=== PATIENT | male | born 1960 | race African-American/Black ===

== ENCOUNTER → 2018-11-23 | Day surgery (SDC) | payer OTHER ==
[2018-11-19 13:23] LABS: ANION GAP 12.6 mmol/L (8-16); BLOOD UREA NITROGEN 7 mg/dL (7-26); BUN/CREATININE RATIO 7 (6-25); CALCIUM 10.4 mg/dL (8.4-10.2); CARBON DIOXIDE 31 mmol/L (22-29); CHLORIDE 100 mmol/L (98-107); CREATININE, SERUM 0.96 mg/dL (0.72-1.25); EST GLOMERULAR FILTRATION RATE > 60 ML/MIN (60-); GLUCOSE 93 mg/dL (74-118); POTASSIUM 4.6 mmol/L (3.5-5.1); SODIUM 139 mmol/L (136-145)
[~2018-11-23] MED LIST: AMLODIPINE BESYL5 MG PO; CLINDAMYCIN 300MG 50 ML IV ONE; FENTANYL CITRATE/PF 100MCG/2 ML INJ ONE; GENTAMICIN 120MG/NS 100ML 100 ML ONE; LIDOCAINE HCL 2% LOCAL INJ 5 ML SDV VIAL INJ ONE; LOSARTAN-HCTZ1 EAC1 PO; MIDAZOLAM HCL 2 MG/2 ML VIAL ONE; PROPOFOL IV EMULSION 10 MG/ML 20 ML VIAL ONE
--- OUTSIDE RECORDS SUMMARY | 2018-11-23 06:22 | XMS REPORT ---
Author Author Admin, [place] Organization [facility] Practice Address [address] [place] [address] Phone Allergies, Adverse Reactions, Alerts Allergy Name Reaction Description Start Date Severity Status Provider No Known Allergies Jason Del Cid MA Conditions or Problems Problem Name Problem Code Onset Date Status Entry Date Provider Comment Standard Description Annotate PSA, elevated 790.93 Active Feli JEROME Elevated prostate specific antigen [PSA] Dyslipidemia 272.4 Active Feli Diamond [employer] Other and unspecified hyperlipidemia Preventative health care V70.0 Active Yoselin Braun MD Routine general medical examination at a health care facility Screening for venereal disease V74.5 Active Yoselin Braun MD Screening examination for venereal disease Screening, colon cancer V76.51 Active Yoselin Braun MD Screening for malignant neoplasms of colon Screening, diabetes mellitus V77.1 Active Yoselin Braun MD Screening for diabetes mellitus Knee pain, bilateral 719.46 Active Speedy Garrett MD Pain in joint involving lower leg Hypercholesterolemia 272.0 Active Megan Wesley D.O. Pure hypercholesterolemia Obesity 278.00 Active Megan Wesley D.O. Obesity, unspecified Hypertension 401.1 Active Brooks Bob MD Benign essential hypertension Physical exam, routine V70.0 Inactive Feli CABRERAP Routine general medical examination at a health care facility Physical exam, routine ICD-V70.0 Inactive Feli Diamond [facility] Screening, Prostate Cancer V76.44 Inactive Feli CABRERAP Screening for malignant neoplasms of prostate Screening, Prostate Cancer ICD-V76.44 Inactive Feli Diamond [facility] Chest discomfort ICD-786.59 Inactive Fawad Benton MD Chest discomfort 786.59 Resolved Yoselin Braun MD Other chest pain Medication List Medication Instructions Start Date Stop Date Generic Name NDC Status Provider Patient Instruction CIALIS 10 MG ORAL TABLET 1 by mouth 1 hour before onset of sexual activity TADALAFIL 17921635709 Active Feli Diamond [facility] Active AMLODIPINE BESYLATE 5 MG ORAL TABLET 1 tab by mouth daily AMLODIPINE BESYLATE 36221835518 Active Feli Diamond [facility] Active LOSARTAN POTASSIUM-HCTZ 100-25 MG ORAL TABLET Take 1 Tablet By Mouth daily LOSARTAN POTASSIUM-HCTZ 38570634437 Active Feli Diamond [facility] Active IBUPROFEN 600 MG ORAL TABLET 1 By Mouth Every 8 hours As Needed pain IBUPROFEN 600 MG ORAL TABLET 873901 IBUPROFEN Inactive SIMVASTATIN 40 MG ORAL TABLET 1 by mouth every night SIMVASTATIN 40 MG ORAL TABLET 19810710 SIMVASTATIN Inactive AMLODIPINE BESYLATE 5 MG ORAL TABLET 1 tab by mouth daily AMLODIPINE BESYLATE 5 MG ORAL TABLET 275794 AMLODIPINE BESYLATE Inactive RANITIDINE HCL 150 MG ORAL TABLET 1 by mouth twice a day RANITIDINE HCL 150 MG ORAL TABLET 19810310 RANITIDINE HCL Inactive LISINOPRIL-HYDROCHLOROTHIAZIDE 20-25 MG ORAL TABLET Take 1/2 Tablet By Mouth Twice a Day LISINOPRIL-HYDROCHLOROTHIAZIDE 20-25 MG ORAL TABLET 19780213 LISINOPRIL-HYDROCHLOROTHIAZIDE Inactive IBUPROFEN 600 MG ORAL TABLET 1 By Mouth Every 8 hours As Needed pain IBUPROFEN 61911464299 No Longer Active Yoselin Braun MD Active SIMVASTATIN 40 MG ORAL TABLET 1 by mouth every night SIMVASTATIN 75198912232 No Longer Active Feli Diamond [employer] Active AMLODIPINE BESYLATE 5 MG ORAL TABLET 1 tab by mouth daily AMLODIPINE BESYLATE 87941314840 No Longer Active Yoselin Braun MD Active RANITIDINE HCL 150 MG ORAL TABLET 1 by mouth twice a day RANITIDINE HCL 46259614764 No Longer Active Yoselin Braun MD Active LISINOPRIL-HYDROCHLOROTHIAZIDE 20-25 MG ORAL TABLET Take 1/2 Tablet By Mouth Twice a Day LISINOPRIL-HYDROCHLOROTHIAZIDE 15454041787 No Longer Active Brooks Bob MD Active Vital Signs Date Name Value Unit Range Description blood pressure, diastolic, second observation 124 mm[Hg] BP tai blood pressure, diastolic 111 mm[Hg] BP tai blood pressure, systolic, second observation 172 mm[Hg] BP sys blood pressure, systolic 163 mm[Hg] BP sys height E&M 71 [in_us] Bdy height pulse rate E&M 87 /min Heart rate respiratory rate E&M 22 /min Resp rate temperature E&M 97 [degF] Body temperature weight E&M 229.50 [lb_av] Weight Measured Diagnostic Results Date Name Value Unit Range Description Lab Report: CBC With Differential/Platelet, Comp. Metabolic Panel (14), ... - Chemistry very low density lipoproteins 12 mg/dL 5-40 chloride, serum 98 mmol/L 96-106 urea nitrogen, blood 5 mg/dL 6-24 Lab Report: CBC With Differential/Platelet, Comp. Metabolic Panel (14), ... - Hematology mean corpuscular hemoglobin concentration, RBC 31.7 G/DL % 31.5-35.7 erythrocyte (RBC) count 5.01 X10E6/UL 10*6/mm3 4.14-5.80 Lab Report: CBC With Differential/Platelet, Comp. Metabolic Panel (14), ... - Chemistry Absolute Neutrophils 1.7 X10E3/UL 10*3/uL 1.4-7.0 LDL cholesterol, serum 130 mg/dL 0-99 urea nitrogen/creatinine ratio, serum 5 9-20 Lab Report: CBC With Differential/Platelet, Comp. Metabolic Panel (14), ... - Hematology mean corpuscular volume, RBC 87 fL 79-97 Lab Report: CBC With Differential/Platelet, Comp. Metabolic Panel (14), ... - Chemistry HDL cholesterol, serum 48 mg/dL >39 Lab Report: CBC With Differential/Platelet, Comp. Metabolic Panel (14), ... - Hematology monocytes as percent of blood leukocytes 7 % Not Estab. Lab Report: CBC With Differential/Platelet, Comp. Metabolic Panel (14), ... - Chemistry albumin/globulin ratio, serum 1.4 1.2-2.2 creatinine, serum 0.99 mg/dL 0.76-1.27 cholesterol, serum 190 mg/dL 100-199 Lab Report: Comp. Metabolic Panel (14), Lipid Panel, Microalb/Creat Rati ... - Chemistry creatinine, random, urine 219.5 mg/dL 22.0-328.0 Lab Report: CBC With Differential/Platelet, Comp. Metabolic Panel (14), ... - Chemistry bilirubin, serum, total 0.6 mg/dL 0.0-1.2 Lab Report: CBC With Differential/Platelet, Comp. Metabolic Panel (14), ... - Hematology Eosinophil Absolute Count 0.1 X10E3/UL 10*3/uL 0.0-0.4 Lab Report: Comp. Metabolic Panel (14), Lipid Panel, Microalb/Creat Rati ... - Lab chlamydia DNA probe Negative Negative Lab Report: CBC With Differential/Platelet, Comp. Metabolic Panel (14), ... - Chemistry aspartate aminotransferase (SGOT), serum 29 U/L 0-40 Lab Report: CBC With Differential/Platelet, Comp. Metabolic Panel (14), ... - Hematology red blood cell distribution width 15.0 % 12.3-15.4 leukocyte count, blood 5.4 X10E3/UL 10*3/mm3 3.4-10.8 Lab Report: CBC With Differential/Platelet, Comp. Metabolic Panel (14), ... - Chemistry potassium, serum 4.8 mmol/L 3.5-5.2 albumin, serum 4.2 g/dL 3.5-5.5 immature granulocytes, percentage of total cells, blood 0 % Not Estab. Lab Report: CBC With Differential/Platelet, Comp. Metabolic Panel (14), ... - Hematology lymphocyte count, blood, automated 3.1 X10E3/UL 10*3/mm3 0.7-3.1 hematocrit, blood 43.6 % 37.5-51.0 Lab Report: Comp. Metabolic Panel (14), Lipid Panel, Microalb/Creat Rati ... - Microbiology Neisseria gonorrhoeae DNA probe Negative Negative Lab Report: CBC With Differential/Platelet, Comp. Metabolic Panel (14), ... - Chemistry sodium, serum 140 mmol/L 134-144 Lab Report: CBC With Differential/Platelet, Comp. Metabolic Panel (14), ... - Hematology neutrophils as percent of blood leukocytes 32 % Not Estab. basophils as percent of blood leukocytes 0 % Not Estab. Lab Report: Comp. Metabolic Panel (14), Lipid Panel, Microalb/Creat Rati ... - Serology rapid plasma reagin antibody, serum Non Reactive Non Reactive Lab Report: CBC With Differential/Platelet, Comp. Metabolic Panel (14), ... - Chemistry carbon dioxide, venous blood 28 mmol/L 20-29 triglyceride, serum, fasting 60 mg/dL 0-149 calcium, serum 9.1 mg/dL 8.7-10.2 Lab Report: Comp. Metabolic Panel (14), Lipid Panel, Microalb/Creat Rati ... - Chemistry microalbumin/creatinine ratio, urine 5.5 MG/G CREAT ug/mg 0.0-30.0 Lab Report: CBC With Differential/Platelet, Comp. Metabolic Panel (14), ... - Chemistry alanine aminotransferase (SGPT), serum 31 U/L 0-44 Lab Report: CBC With Differential/Platelet, Comp. Metabolic Panel (14), ... - Hematology mean corpuscular hemoglobin, RBC 27.5 pg 26.6-33.0 Lab Report: CBC With Differential/Platelet, Comp. Metabolic Panel (14), ... - Chemistry protein, total, serum 7.1 g/dL 6.0-8.5 alkaline phosphatase, serum 50 U/L 39-117 Lab Report: CBC With Differential/Platelet, Comp. Metabolic Panel (14), ... - Hematology hemoglobin, blood 13.8 g/dL 13.0-17.7 lymphocytes as percent of blood leukocytes 59 % Not Estab. Lab Report: CBC With Differential/Platelet, Comp. Metabolic Panel (14), ... - Chemistry hemoglobin A1C, blood, as % of total hemoglobin 5.9 % 4.8-5.6 Lab Report: CBC With Differential/Platelet, Comp. Metabolic Panel (14), ... - Genetics/fertility eGFR if 97 mL/min/1.73m2 >59 Lab Report: CBC With Differential/Platelet, Comp. Metabolic Panel (14), ... - Hematology basophil count, absolute 0.0 x10E3/uL 0.0-0.2 Lab Report: CBC With Differential/Platelet, Comp. Metabolic Panel (14), ... - Chemistry globulin, serum 2.9 1.5-4.5 Estimated Glomerular Filtration Rate (calc) 84 mL/min/1.73m2 >59 Lab Report: Comp. Metabolic Panel (14), Lipid Panel, Microalb/Creat Rati ... - Urinalysis microalbumin/total urine volume 12.0 mg/L 0.0-17.0 Lab Report: CBC With Differential/Platelet, Comp. Metabolic Panel (14), ... - Hematology eosinophils as percent of blood leukocytes 2 % Not Estab. Lab Report: CBC With Differential/Platelet, Comp. Metabolic Panel (14), ... - Chemistry blood glucose, random 97 mg/dL 65-99 prostate specific antigen 4.9 ng/mL 0.0-4.0 Lab Report: CBC With Differential/Platelet, Comp. Metabolic Panel (14), ... 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 Est Patient Exp Problem - [id number] [facility] [id number] [facility] 09:32:55 CDT Est Patient Exp Problem - 73987 [facility] CPT-05387 [facility] 10:23:38 CDT Est Patient Exp Problem - 94562 [facility] CPT-36714 [facility] 11:46:28 CDT Est Patient Exp Problem - 73314 Yoselin Braun MD CPT-06066 [facility] 10:53:55 CDT Est Patient Exp Problem - 81446 Speedy Garrett MD CPT-86921 [facility] 10:12:55 CDT Est Patient Exp Problem - 22119 Megan Wesley D.O. CPT-91278 [facility] 11:59:21 CDT New Patient Exp Problem - 02813 Kb Miramontes MD CPT-41042 [facility] Procedures Code Procedure Name Date Entry Date Standard Description CPT-21775 Est Patient Well Exam (40 - 64 Yrs) - [address]009 12:45:44 CDT CPT-16798 Aspiration / Injection - Major Joint / Bursa 23:48:27 CDT
[2018-11-23 09:45] VITALS: BP 131/91
--- NOTE | 2018-11-23 21:12 | Operative Report ---
DATE OF PROCEDURE: SURGEON: Patel Britton MD PREOPERATIVE DIAGNOSIS: Elevated PSA of 5.8. POSTOPERATIVE DIAGNOSIS: Elevated PSA of 5.8. PROCEDURES: 1. Prostate ultrasound. 2. Ultrasound guidance needle biopsy. 3. Needle biopsy of prostate. ANESTHESIA: General. ESTIMATED BLOOD LOSS: Minimal. COMPLICATIONS: None. INDICATIONS: Mr. Wesley is a 58-year-old male with a PSA of 5.8. He and I had a long discussion about alternatives, risks, and benefits including doing nothing, for prostate biopsy. He voiced understanding options, the alternatives, risks and benefits, and elected to proceed. PROCEDURE IN DETAIL: After informed consent was obtained, the patient was taken to the operative suite. He had been given prophylactic antibiotics. He had taken prophylactic enema. General anesthesia by anesthesia service. He was placed in left lateral decubitus position. 1. Prostate ultrasound: A transrectal ultrasound was inserted rectally with a plethora of lubrication. Prostate ultrasound was performed revealing normal-appearing seminal vesicles, normal-appearing base. Mid and apex regions, no calcifications, no hypoechoic lesions. The volume was calculated at 48 mL. Impression; BPH. 2. Ultrasound guidance: I was present. I utilized the probe to guide needle biopsies. 3. Needle biopsy of prostate: 10 core biopsy approach was performed on prostate. The patient tolerated the procedure well, was transported to recovery room in excellent condition with no untoward effects noted. Patel Britton MD ES/MODL /[id number] cc: [facility]
== END | disposition home or self-care (01) ==
LOC: OR 05:53
PROVIDERS: ATTEND Urology
DX: C61 Malignant neoplasm of prostate (principal); R97.20 Elevated prostate specific antigen [PSA]; I10 Essential (primary) hypertension; Z01.810 Encounter for preprocedural cardiovascular examination; Z01.812 Encounter for preprocedural laboratory examination
CPT/HCPCS: 36415; 55700; 76942; 80048; 88305; 93005; J1580; J2001; J2250; J2704; 76872